=== PATIENT | female | born 1990 | race Caucasian/White ===

== ENCOUNTER 2016-12-19 20:49 | Emergency (ER) | payer MEDICAID, OTHER ==
[~2016-12-19] VITALS: Ht 160 cm; Wt 69.5 kg
[~2016-12-19 20:49] MED LIST: ACYC-1 PO; BENEPOW5 PO; DIFL150T PO; LEXA10TA PO; METR500T10 PO; RANI150T PO; SULF400T20 PO
[2016-12-19 20:58] VITALS: BP 139/88; PULSE 90; RESP 18; TEMP 98.5; O2SAT 100
[2016-12-19] MEDS ORDERED: FERR325C PO (21:17)
[2016-12-19] MEDS ORDERED: AMOXICILLIN/CLAVULANATE K 875 MG TAB PO ONE (21:30)
[2016-12-19] MEDS ORDERED: TETANUS/DIPHTHERIA TOXOID ADULT 0.5 ML VIAL IM ONE (21:30)
[2016-12-19] MEDS ORDERED: AUGM875T3 PO (21:45)
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
== END 2016-12-19 22:14 | disposition home or self-care (01) ==
LOC: PHEFT 20:49
DX: S61.051A Open bite of right thumb without damage to nail, initial encounter (principal); R42 Dizziness and giddiness; Z23 Encounter for immunization; Z86.59 Personal history of other mental and behavioral disorders; Z87.19 Personal history of other diseases of the digestive system; Z87.09 Personal history of other diseases of the respiratory system; Z86.69 Personal history of other diseases of the nervous system and sense organs; Y04.1XXA Assault by human bite, initial encounter; Y04.2XXA Assault by strike against or bumped into by another person, initial encounter
CPT/HCPCS: 90471; 90714

== ENCOUNTER 2017-01-18 20:03 | Emergency (ER) | payer OTHER, MEDICAID ==
[~2017-01-18] VITALS: Ht 160 cm; Wt 80.0 kg
[~2017-01-18 20:03] MED LIST changes: -ACYC-1 PO; +AUGM875T3 PO; -BENEPOW5 PO; -DIFL150T PO; +FERR325C PO; -LEXA10TA PO; -METR500T10 PO; -SULF400T20 PO
[2017-01-18 20:05] VITALS: BP 173/93; PULSE 88; RESP 18; TEMP 98.9; O2SAT 99
--- NOTE | 2017-01-18 20:45 | PD ---
Physical Exam Date Seen by Provider: Jan 18, 2017 Time Seen by Provider: 20:44 Data Data Last Documented VS Vital Signs Date Time Temp Pulse Resp B/P (MAP) Pulse Ox O2 Delivery O2 Flow Rate FiO2 01/18/17 20:05 98.9 88 18 173/93 (119) 99 MDM Supervised Visit with LB: No Narrative Course 26 YO F with complaint of abdominal pain since this AM. Described as "like I'm in labor." +N/V. --vaginal bleeding. LMP 01/04. Vitals reviewed. Patient seen in triage, awaiting bed placements. Jessy Huerta Jan 18, 2017 20:45
[2017-01-18 22:28] LABS: BLOOD, URINE NEG (NEG); GLUCOSE,URINE NEG (NEG); KETONE, URINE NEG (NEG); NITRITE,URINE NEG (NEG); SQUAMOUS EPITHELIAL CELL URINE <1 /hpf (0-5); URINE COLOR LIGHT-YELLOW (YELLW/STRAW)
[2017-01-18 22:29] LABS: COMMENT (UR) CULT NOT INDICATED; CULTURE IF INDICATED CULT NOT INDICATED
[2017-01-18 23:28] LABS: AUTOMATED NEUTROPHIL # 8.9 TH/MM3 (1.8-7.7); BASOPHIL % 0.2 % (0.0-2.0); EOSINOPHIL % 0.3 % (0.0-4.0); HEMO FLAGS DIFF FINAL; LYMPH % 30.4 % (9.0-44.0); LYMPHOCYTE # 4.2 TH/MM3 (1.0-4.8); MEAN CELL VOLUME 78.5 FL (80.0-100.0); MEAN CORPUSCULAR HEMOGLOBIN 25.5 PG (27.0-34.0); MEAN CORPUSCULAR HGB CONC 32.5 % (32.0-36.0); MONO % 5.1 % (0.0-8.0); PLATELET COUNT 308 TH/MM3 (150-450); RED BLOOD COUNT 5.09 MIL/MM3 (4.00-5.30); WHITE BLOOD COUNT 13.9 TH/MM3 (4.0-11.0)
--- NOTE | 2017-01-18 23:34 | PD ---
HPI Chief Complaint: Abdominal Pain Time Seen by Provider: 22:45 Travel History International Travel<30 days: No Contact w/Intl Traveler<30days: No Traveled to known affect area: No History of Present Illness HPI Patient is a 26-year-old female presents emergency Department with abdominal pain radiating traction. She states she's not currently. States it became fairly alarming to her. She states that she has had some fairly hard stools over the past few days but no blood in the stool. States the pain is coming and going and right now she is pain-free. She states that it caused her to panic initially and she felt very concerned. Denies any fevers denies any vaginal bleeding vaginal discharge. States symptoms waxing and waning started early this morning. PFSH Past Medical History ADD: No ADHD: No Anxiety: Yes (PANIC DEPRESSION) Depression: Yes Cancer: No Cardiovascular Problems: No Developmental Delay: No Diabetes: No Diminished Hearing: No Gastrointestinal Disorders: Yes Genitourinary: No Headaches: Yes Hypertension: No Musculoskeletal: No Neurologic: No Psychiatric: Yes Reproductive: Yes Respiratory: Yes Immunizations Current: Yes Migraines: No Seizures: No Shingles: Yes Sickle Cell Disease: No Sleep Apnea: No Thyroid Disease: No Ulcer: No Tetanus Vaccination: < 5 Years Influenza Vaccination: Yes ?: Not LMP: 01/14/17 : 4 Para: 4 Miscarriage: 0 : 0 Dilation and Curettage (D&C): Yes Tubal Ligation: Yes Past Surgical History Appendectomy: No Section: Yes (x 3) Cholecystectomy: No Other Surgery: No Social History Alcohol Use: Yes (OCCASIONALLY) Tobacco Use: No Substance Use: No Allergies-Medications (Allergen,Severity, Reaction): Coded Allergies: No Known Allergies (Verified , 12/19/16) Reported Meds & Prescriptions Reported Meds & Active Scripts Active Miralax Powder (Polyethylene Glycol 3350 Powder) 17 Gm Powd 17 Gm PO DAILY Mix and dissolve one measuring cap-ful (17 grams) in water or juice. Augmentin (Amoxicillin-Clavulanate) 875-125 Mg Tab 1 Tab PO BID 7 Days Ranitidine (Ranitidine HCl) 150 Mg Tab 150 Mg PO BID Reported Iron (Ferrous Sulfate) 325 Mg Cap 325 Mg PO DAILY Review of Systems Except as stated in HPI: all other systems reviewed are Neg Physical Exam Narrative GENERAL: Well-developed well-nourished no obvious distress. SKIN: Focused skin assessment warm/dry. HEAD: Atraumatic. Normocephalic. EYES: Pupils equal and round. No scleral icterus. No injection or drainage. ENT: No nasal bleeding or discharge. Mucous membranes pink and moist. NECK: Trachea midline. No JVD. CARDIOVASCULAR: Regular rate and rhythm. No murmur appreciated. RESPIRATORY: No accessory muscle use. Clear to auscultation. Breath sounds equal bilaterally. GASTROINTESTINAL: Abdomen soft, non-tender, nondistended. Hepatic and splenic margins not palpable. No CVA tenderness no rebound no percussive tenderness. MUSCULOSKELETAL: No obvious deformities. No clubbing. No cyanosis. No edema. NEUROLOGICAL: Awake and alert. No obvious cranial nerve deficits. Motor grossly within normal limits. Normal speech. PSYCHIATRIC: Appropriate mood and affect; insight and judgment normal. Data Data Last Documented VS Vital Signs Date Time Temp Pulse Resp B/P (MAP) Pulse Ox O2 Delivery O2 Flow Rate FiO2 01/18/17 20:05 98.9 88 18 173/93 (119) 99 Orders Orders Ed Urine Pregnancytest Poc (01/18/17 20:45) Urinalysis - C+S If Indicated (01/18/17 20:45) Complete Blood Count With Diff (01/18/17 20:50) Comprehensive Metabolic Panel (01/18/17 20:50) Lipase (01/18/17 20:50) Abdomen, Kub Only (01/18/17 ) Labs Laboratory Tests Test 01/18/17 21:18 01/18/17 22:50 Urine Color LIGHT-YELLOW Urine Turbidity CLEAR Urine pH 7.0 Urine Specific [place] 1.003 Urine Protein NEG mg/dL Urine Glucose (UA) NEG mg/dL Urine Ketones NEG mg/dL Urine Occult Blood NEG Urine Nitrite NEG Urine Bilirubin NEG Urine Urobilinogen LESS THAN 2.0 MG/DL Urine Leukocyte Esterase NEG Urine RBC LESS THAN 1 /hpf Urine WBC 1 /hpf Urine Squamous Epithelial Cells <1 /hpf Microscopic Urinalysis Comment CULT NOT INDICATED White Blood Count 13.9 TH/MM3 Red Blood Count 5.09 MIL/MM3 Hemoglobin 13.0 GM/DL Hematocrit 40.0 % Mean Corpuscular Volume 78.5 FL Mean Corpuscular Hemoglobin 25.5 PG Mean Corpuscular Hemoglobin Concent 32.5 % Red Cell Distribution Width 15.0 % Platelet Count 308 TH/MM3 Mean Platelet Volume 8.9 FL Neutrophils (%) (Auto) 64.0 % Lymphocytes (%) (Auto) 30.4 % Monocytes (%) (Auto) 5.1 % Eosinophils (%) (Auto) 0.3 % Basophils (%) (Auto) 0.2 % Neutrophils # (Auto) 8.9 TH/MM3 Lymphocytes # (Auto) 4.2 TH/MM3 Monocytes # (Auto) 0.7 TH/MM3 Eosinophils # (Auto) 0.0 TH/MM3 Basophils # (Auto) 0.0 TH/MM3 CBC Comment DIFF FINAL Differential Comment Blood Urea Nitrogen 11 MG/DL Creatinine 0.74 MG/DL Random Glucose 111 MG/DL Total Protein 8.7 GM/DL Albumin 4.1 GM/DL Calcium Level 9.4 MG/DL Alkaline Phosphatase 114 U/L Aspartate Amino Transf (AST/SGOT) 14 U/L Alanine Aminotransferase (ALT/SGPT) 16 U/L Total Bilirubin 0.2 MG/DL Sodium Level 140 MEQ/L Potassium Level 3.8 MEQ/L Chloride Level 104 MEQ/L Carbon Dioxide Level 29.4 MEQ/L Anion Gap 7 MEQ/L Estimat Glomerular Filtration Rate 96 ML/MIN Lipase 81 U/L MDM Medical Decision Making Medical Screen Exam Complete: Yes Emergency Medical Condition: Yes Differential Diagnosis Constipation, , kidney stone unlikely, acute abdomen extremely unlikely. Narrative Course Patient roomed emergency department, offered pain medicine and declined. Symptoms suggestive of pain with passage of hard stool through the intestine. Her labs are reassuring, test negative. X-ray reviewed by me and does show a fair amount of hard stool. Last 24 hours Impressions Abdomen X-Ray 01/18/17 0000 Signed Impressions: Service Date/Time: Wednesday, January 18, 2017 23:39 - CONCLUSION: No acute disease. Darius Asif MD Discussed with the patient MiraLAX therapy at this point I think the risks of radiation exposure outweigh the pretest probability is no indication for advanced imaging. She was offered a pelvic exam and declined stating she would rather do it with a primary care physician. She stable for discharge. I discussed with her that there is no obvious cause for her abdominal pain but given her history this likely passage of hard stool. Discussed if she continues to have pain and she needs to return to emergency department have pelvic exam and consideration of further workup. Diagnosis Primary Impression: Abdominal pain Additional Impression: Constipation Patient Instructions: Constipation (DC), General Instructions Med/Other Pt SpecificInfo: Prescription(s) given Scripts Polyethylene Glycol 3350 Powder (Miralax Powder) 17 Gm Powd 17 GM PO DAILY for Constipation, #1 CAN 0 Refills Mix and dissolve one measuring cap-ful (17 grams) in water or juice. Prov: Martin Ring MD 01/19/17 Disposition: 01 DISCHARGE HOME Condition: Stable Martin Ring MD Jan 18, 2017 23:33
[2017-01-18 23:40] LABS: ALT (GPT) 16 U/L (10-53); ANION GAP 7 MEQ/L (5-15); AST (GOT) 14 U/L (15-37); BICARBONATE 29.4 MEQ/L (21.0-32.0); BLOOD UREA NITROGEN 11 MG/DL (7-18); CHLORIDE 104 MEQ/L (98-107); GLOMERULAR FILTRATION RATE 96 ML/MIN (>89); POTASSIUM 3.8 MEQ/L (3.5-5.1); SODIUM (NA) 140 MEQ/L (136-145)
[2017-01-18 23:45] LABS: ALKALINE PHOSPHATASE 114 U/L (45-117); TOTAL BILIRUBIN ADULT 0.2 MG/DL (0.2-1.0)
[2017-01-19] MEDS ORDERED: MIRA3350 PO (00:03)
--- NOTE | 2017-01-19 00:20 | RADRPT ---
EXAM DATE/TIME: 01/18/2017 23:39 [facility] COMPARISON: No previous studies available for comparison. INDICATIONS : Bilateral lower quadrant abdominal pain. MEDICAL HISTORY : None. SURGICAL HISTORY : section. ENCOUNTER: Initial ACUITY: 1 day PAIN SCORE: 7/10 LOCATION: Bilateral lower quadrant abdomen FINDINGS: Supine view of the abdomen was performed. The abdominal bowel gas pattern is normal. No abnormal ma sses, calcifications, or organomegaly is seen. The osseous structures are unremarkable. CONCLUSION: No acute disease. Darius Asif MD on January 19, 2017 at 0:18 Board Certified Radiologist. This report was verified electronically.
[2017-03-01] MEDS ORDERED: LORA-392 PO (11:31)
[2017-03-07] MEDS ORDERED: LEXA5TAB PO (17:08)
[2017-03-07] MEDS ORDERED: BACL10TA PO (18:41)
[2017-03-07] MEDS ORDERED: IBUP800T23 PO (18:41)
== END 2017-01-19 01:55 | disposition home or self-care (01) ==
LOC: NEPD 20:03
DX: K59.00 Constipation, unspecified (principal); R10.84 Generalized abdominal pain
CPT/HCPCS: 74000; 80053; 81001; 83690; 84703; 85025; 99284

== ENCOUNTER 2017-03-07 16:27 | Emergency (ER) | payer OTHER ==
[~2017-03-07] VITALS: Ht 160 cm; Wt 109.0 kg
[~2017-03-07 16:27] MED LIST changes: -AUGM875T3 PO; +LORA-392 PO
[2017-03-07 16:58] VITALS: BP 127/70; PULSE 78; RESP 18; TEMP 100.5; O2SAT 96
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
[2017-03-07] MEDS ORDERED: LEXA5TAB PO ×2 (17:08)
[2017-03-07 17:10] VITALS: BP 127/70; PULSE 78; RESP 18; TEMP 100.3; O2SAT 97
[2017-03-07] MEDS ORDERED: MORPHINE SULFATE 4 MG/ML INJ IV PUSH ONE ×2 (17:15)
[2017-03-07] MEDS ORDERED: ONDANSETRON HCL 4 MG/2 ML VIAL IVP ONE ×2 (17:15)
[2017-03-07 17:38] LABS: AUTOMATED NEUTROPHIL # 7.1 TH/MM3 (1.8-7.7); BASOPHIL % 0.3 % (0.0-2.0); EOSINOPHIL # 0.1 TH/MM3 (0-0.4); EOSINOPHIL % 0.6 % (0.0-4.0); HEMATOCRIT 37.6 % (35.0-46.0); HEMOGLOBIN 12.6 GM/DL (11.6-15.3); LYMPH % 25.5 % (9.0-44.0); LYMPHOCYTE # 2.7 TH/MM3 (1.0-4.8); MEAN CELL VOLUME 78.3 FL (80.0-100.0); MEAN CORPUSCULAR HEMOGLOBIN 26.3 PG (27.0-34.0); MEAN CORPUSCULAR HGB CONC 33.5 % (32.0-36.0); MONO % 6.4 % (0.0-8.0); MONOCYTE # 0.7 TH/MM3 (0-0.9); NEUT % 67.2 % (16.0-70.0); PLATELET COUNT 256 TH/MM3 (150-450); RED CELL DISTRIBUTION WIDTH 15.2 % (11.6-17.2); WHITE BLOOD COUNT 10.5 TH/MM3 (4.0-11.0)
[2017-03-07 17:51] LABS: INTERNATIONAL NORMALIZED RATIO 0.9 RATIO; PROTHROMBIN TIME - PATIENT 10.3 SEC (9.8-11.6)
[2017-03-07 17:59] LABS: BICARBONATE 27.8 MEQ/L (21.0-32.0); CALCIUM 9.4 MG/DL (8.5-10.1); CREATININE 0.68 MG/DL (0.50-1.00)
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
[2017-03-07] MEDS ORDERED: BACL10TA PO ×2 (18:41)
[2017-03-07] MEDS ORDERED: IBUP800T23 PO ×2 (18:41)
== END 2017-03-07 19:09 | disposition home or self-care (01) ==
LOC: NEPE 16:27
DX: S16.1XXA Strain of muscle, fascia and tendon at neck level, initial encounter (principal); S46.911A Strain of unspecified muscle, fascia and tendon at shoulder and upper arm level, right arm, initial encounter; S09.90XA Unspecified injury of head, initial encounter; R07.9 Chest pain, unspecified; R10.30 Lower abdominal pain, unspecified; V89.2XXA Person injured in unspecified motor-vehicle accident, traffic, initial encounter; Z86.59 Personal history of other mental and behavioral disorders; Z87.19 Personal history of other diseases of the digestive system; Z87.42 Personal history of other diseases of the female genital tract; Z87.09 Personal history of other diseases of the respiratory system; Z86.69 Personal history of other diseases of the nervous system and sense organs
CPT/HCPCS: 70450; 71010; 72125; 73030; 80048; 84703; 85025; 85610; 85730; 96374; 96375; 99285; J2270; J2405

== ENCOUNTER 2017-07-06 16:33 | Emergency (ER) | payer MEDICAID, OTHER ==
[~2017-07-06] VITALS: Ht 160 cm; Wt 109.0 kg
[~2017-07-06 16:33] MED LIST changes: +BACL10TA PO; -FERR325C PO; +IBUP1TAB7 PO; +LEXA5TAB PO; -RANI150T PO
[2017-07-06 16:34] VITALS: BP 182/98; PULSE 95; RESP 18; TEMP 99; O2SAT 100
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
[2017-07-07] MEDS ORDERED: FERR325T18 PO (12:40)
[2017-07-07] MEDS ORDERED: CYAN25005 PO (12:40)
[2017-07-07] MEDS ORDERED: CYCL10TA PO (13:34)
== END 2017-07-06 21:36 | disposition left against medical advice (07) ==
LOC: NED 16:33
DX: Z53.21 Procedure and treatment not carried out due to patient leaving prior to being seen by health care provider (principal)
CPT/HCPCS: 99281

== ENCOUNTER 2017-07-07 12:13 | Emergency (ER) | payer SELFPAY ==
[~2017-07-07] VITALS: Ht 160 cm; Wt 107.0 kg
[2017-07-07 12:17] VITALS: BP 141/72; PULSE 89; RESP 17; TEMP 98.9; O2SAT 100
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
[2017-07-07 12:37] LABS: BILIRUBIN, URINE NEG (NEG); BLOOD, URINE NEG (NEG); GLUCOSE,URINE NEG (NEG); KETONE, URINE NEG (NEG); NITRITE,URINE NEG (NEG); URINE LEUKOCYTE ESTERASE NEG (NEG)
[2017-07-07] MEDS ORDERED: FERR325T18 PO (12:40)
[2017-07-07] MEDS ORDERED: CYAN25005 PO (12:40)
[2017-07-07 12:41] LABS: URINE COLOR YELLOW (YELLW/STRAW)
[2017-07-07 12:42] LABS: AMORPHOUS SEDIMENT, URINE MOD; SQUAMOUS EPITHELIAL CELL URINE > 8 /hpf (0-5)
[2017-07-07] MEDS ORDERED: CYCL10TA PO (13:34)
[2017-07-07] MEDS ORDERED: ACETAMINOPHEN/HYDROcodone 325 MG/5 MG TAB PO ONE (13:45)
== END 2017-07-07 13:54 | disposition home or self-care (01) ==
LOC: PHED 12:13
DX: M54.89 Other dorsalgia (principal)
CPT/HCPCS: 81001; 84703; 99283

== ENCOUNTER 2017-09-04 21:46 | Emergency (ER) | payer SELFPAY ==
[~2017-09-04 21:46] MED LIST changes: -BACL10TA PO; +CYAN25005 PO; +CYCL10TA PO; +FERR325T18 PO; -IBUP1TAB7 PO; -LEXA5TAB PO; -LORA-392 PO
[2017-09-04 21:51] VITALS: BP 130/60; PULSE 84; RESP 20; TEMP 100; O2SAT 100
== END 2017-09-05 00:28 | disposition left against medical advice (07) ==
LOC: PHED 21:46 → PHEFT 09-05 00:28
DX: R21 Rash and other nonspecific skin eruption (principal); Z53.21 Procedure and treatment not carried out due to patient leaving prior to being seen by health care provider
CPT/HCPCS: 99281

== ENCOUNTER 2017-09-16 15:00 | Emergency (ER) | payer OTHER ==
[~2017-09-16] VITALS: Ht 160 cm; Wt 107.0 kg
[2017-09-16 15:04] VITALS: BP 133/80; PULSE 88; RESP 16; TEMP 98.3; O2SAT 98
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
[2017-09-16] MEDS ORDERED: IBUP-232 PO (16:56)
[2017-09-16] MEDS ORDERED: IBUPROFEN 600 MG TAB PO ONE (17:00)
== END 2017-09-16 17:12 | disposition home or self-care (01) ==
LOC: PHEFT 15:00
DX: S06.0X0A Concussion without loss of consciousness, initial encounter (principal); M54.5 Low back pain; R07.89 Other chest pain; D64.9 Anemia, unspecified; F32.9 Major depressive disorder, single episode, unspecified; V43.62XA Car passenger injured in collision with other type car in traffic accident, initial encounter
CPT/HCPCS: 70450; 71046; 72100; 84703; 99285

== ENCOUNTER 2017-10-21 15:24 | Emergency (ER) | payer SELFPAY ==
[~2017-10-21] VITALS: Ht 160 cm; Wt 108.0 kg
[~2017-10-21 15:24] MED LIST changes: +IBUP-232 PO
[2017-10-21 15:42] VITALS: BP 156/100; PULSE 82; RESP 18; TEMP 98.4; O2SAT 99
--- NOTE | 2017-10-21 15:53 | PD ---
HPI Chief Complaint: Dizziness Time Seen by Provider: 15:49 Travel History International Travel<30 days: No Contact w/Intl Traveler<30days: No Traveled to known affect area: No History of Present Illness HPI Patient is a 26-year-old otherwise healthy female presents emergency department for right-sided headache dizziness heavy feeling in her throat for the past 4 days. Patient has not seen her primary care physician in some time she lost insurance. Denies any fevers cough congestion. Denies any hearing loss in either ear. Denies any fevers. She cannot think of any inciting symptoms no other sick contacts. Patient's symptoms are mild, duration as above, associated signs and symptoms as above and gradually worsening. On review of systems she did also endorses polyuria. PFSH Past Medical History Hx Anticoagulant Therapy: No ADD: No ADHD: No Anemia: Yes Anxiety: Yes (PANIC attacks ) Depression: Yes Cancer: No Cardiovascular Problems: No Developmental Delay: No Diabetes: No Diminished Hearing: No Gastrointestinal Disorders: Yes Genitourinary: No Headaches: Yes Hypertension: No Musculoskeletal: No Neurologic: No Psychiatric: Yes Reproductive: Yes Respiratory: Yes Immunizations Current: Yes Migraines: No Seizures: No Shingles: Yes Sickle Cell Disease: No Sleep Apnea: No Thyroid Disease: No Ulcer: No Tetanus Vaccination: < 5 Years Influenza Vaccination: No ?: Not LMP: SEPTEMBER 7 : 4 Para: 4 Miscarriage: 0 : 0 Dilation and Curettage (D&C): Yes Tubal Ligation: Yes Past Surgical History Abdominal Surgery: Yes (c-sec x3) Appendectomy: No Section: Yes (x 3) Cholecystectomy: No Other Surgery: No Social History Alcohol Use: No Tobacco Use: No Substance Use: No Allergies-Medications (Allergen,Severity, Reaction): Coded Allergies: No Known Allergies (Verified Allergy, Unknown, 10/21/17) Reported Meds & Prescriptions Reported Meds & Active Scripts Active Debrox Otic Drops (Carbamide Peroxide Otic Drops) 6.5% Soln 5-10 Drop LEFT EAR BID PRN up to 4 days. Meclizine (Meclizine HCl) 25 Mg Tab 25 Mg PO TID PRN Reported Vitamin B12 (Cyanocobalamin (Vitamin B-12)) 2,500 Mcg Tab.chew 1 Tab PO DAILY Ferrous Sulfate 325 Mg (65 Mg Iron) Tablet 325 Mg PO DAILY Review of Systems Except as stated in HPI: all other systems reviewed are Neg Physical Exam Narrative GENERAL: Well-developed well-nourished no obvious distress, nontoxic appearance appears well SKIN: No rash or wound HEAD: Atraumatic. Normocephalic. EYES: Pupils equal and round. No scleral icterus. No injection or drainage. ENT: No nasal bleeding or discharge. Mucous membranes pink and moist. Right TM clear, ear canal clear, left TM is completely occluded with cerumen impaction. No mastoid tenderness bilaterally peer NECK: Trachea midline. No JVD. Neck is supple, no lymphadenopathy, nontender. No goiter. CARDIOVASCULAR: Regular rate and rhythm. No murmur appreciated. RESPIRATORY: No accessory muscle use. Clear to auscultation. Breath sounds equal bilaterally. GASTROINTESTINAL: Abdomen soft, non-tender, nondistended. Hepatic and splenic margins not palpable. MUSCULOSKELETAL: No obvious deformities. No clubbing. No cyanosis. No edema. NEUROLOGICAL: Awake and alert. No obvious cranial nerve deficits. Motor grossly within normal limits. Normal speech. Data Data Last Documented VS Vital Signs Date Time Temp Pulse Resp B/P (MAP) Pulse Ox O2 Delivery O2 Flow Rate FiO2 10/21/17 16:45 10/21/17 16:45 82 14 99 Room Air 10/21/17 15:42 98.4 Orders Orders Urinalysis - C+S If Indicated (10/21/17 15:52) Ed Urine Pregnancytest Poc (10/21/17 15:52) Acetaminophen (Tylenol) (10/21/17 16:00) Electrocardiogram (10/21/17 ) Blood Glucose (10/21/17 15:52) Meclizine (Antivert) (10/21/17 16:15) Ed Discharge Order (10/21/17 16:31) Labs Laboratory Tests Test 10/21/17 16:08 Urine Color OTHER Urine Turbidity CLEAR Urine pH 6.5 Urine Specific Kohler LESS/EQUAL 1.005 Urine Protein NEG mg/dL Urine Glucose (UA) NEG mg/dL Urine Ketones NEG mg/dL Urine Occult Blood NEG Urine Nitrite NEG Urine Bilirubin NEG Urine Urobilinogen 0.2 MG/DL Urine Leukocyte Esterase NEG Urine Squamous Epithelial Cells 0-5 /hpf Microscopic Urinalysis Comment CULT NOT INDICATED MDM Medical Decision Making Medical Screen Exam Complete: Yes Emergency Medical Condition: Yes Differential Diagnosis Otitis media unlikely, vertigo, cerumen impaction, new onset diabetes. Narrative Course Patient appears well in no obvious distress. Her blood sugars within normal limits. test negative, UA negative. Discussed that her symptoms certainly could be from cerumen impaction. On my revisit the patient is sitting upright in a stretcher writing and SA in a notebook. She is stable for discharge no indication further workup at this time Diagnosis Primary Impression: Cerumen impaction Qualified Codes: H61.22 - Impacted cerumen, left ear Additional Impressions: Headache Dizziness Patient Instructions: Cerumen Impaction (ED), General Instructions Departure Forms: Tests/Procedures, Work Release Enter return to work date: October 22, 2017 Med/Other Pt SpecificInfo: Prescription(s) given Scripts Carbamide Peroxide Otic Drops (Debrox Otic Drops) 6.5% Soln 5-10 DROP LEFT EAR BID Y for Ear Wax Removal, #1 BOTTLE 0 Refills up to 4 days. Prov: Martin Ring MD 10/21/17 Meclizine (Meclizine) 25 Mg Tab 25 MG PO TID Y for VERTIGO, #20 TAB 0 Refills Prov: Martin Ring MD 10/21/17 Disposition: 01 DISCHARGE HOME Condition: Stable Martin Ring MD October 21, 2017 15:53
[2017-10-21] MEDS ORDERED: ACETAMINOPHEN 325 MG TAB PO ONE (16:00)
[2017-10-21 16:15] LABS: BILIRUBIN, URINE NEG (NEG); BLOOD, URINE NEG (NEG); GLUCOSE,URINE NEG (NEG); KETONE, URINE NEG (NEG); NITRITE,URINE NEG (NEG); PH, URINE 6.5 (5.0-8.5); URINE COLOR OTHER (YELLW/STRAW); URINE LEUKOCYTE ESTERASE NEG (NEG)
[2017-10-21] MEDS ORDERED: MECLIZINE HCL 25 MG TAB PO ONE (16:15)
[2017-10-21] MEDS ORDERED: MECL-62 PO (16:24)
[2017-10-21] MEDS ORDERED: CARB6.5S5 LEFT EAR (16:24)
[2017-10-21 16:28] LABS: SQUAMOUS EPITHELIAL CELL URINE 0-5 /hpf (0-5)
[2017-10-21 16:45] VITALS: BP 127/77; PULSE 82; RESP 14; O2SAT 99
--- NOTE | 2017-10-22 14:07 | EKG ---
Date Performed: 10/21/2017 Time Performed: 16:01:12 PTAGE: 26 years EKG: Sinus rhythm NORMAL ECG Compared to PREVIOUS TRACING , the small Q-waves inferiorly are new. PREVIOUS TRACIN01/15/2016 15. 38 DOCTOR: Louie Castillo Interpretating Date/Time 10/22/2017 14:05:40
== END 2017-10-21 16:45 | disposition home or self-care (01) ==
LOC: PHED 15:24
DX: H61.22 Impacted cerumen, left ear (principal); R51 Headache; R42 Dizziness and giddiness; F32.9 Major depressive disorder, single episode, unspecified; F41.0 Panic disorder [episodic paroxysmal anxiety]
CPT/HCPCS: 81001; 84703; 93005; 99284